=== PATIENT | female | born 1970 | race Caucasian/White ===

== ENCOUNTER 2022-02-07 00:40 | Observation (INO) ==
--- NOTE | 2022-02-07 00:53 | DR.SOBA ---
HPI Time Seen Time Seen by Provider: 02/07/22 00:51 HPI Comment HPI Comment: A 51 y/o female presenting via EMS in respiratory ditress. EMS had been called to the house for her hyspnea. SHe was found in a back room administering her Nubulizer treatment. The exam showed minimal air movement. She was given 0.3 mg of Epi. and later on 0.5 mg Epi. Reviewed Nurses Notes Reviewed: Yes Source History Provided: EMS Mode of Arrival Mode of Arrival: EMS Timing Onset of Chief Complaint: 02/07/22 Context Onset:: At Rest History of:: Asthma Currently on:: Inhaled Bronchodilators Prehospital Care:: Inhaled B2 Modifying Factors Worsens:: Nothing Improves:: Nothing Associated Signs and Symptoms Associated Signs and Symptoms: None PMH PMH Past Medical History: Asthma Past Medical History Comment: Lola MARTINEZ Review of Systems Constitutional: Diaphoresis Eyes: No Symptoms Reported ENTM: No Symptoms Reported Respiratoy: Other (resp. distress) Cardiovascular: No Symptoms Reported Gastrointestinal/Abdominal: No Symptoms Reported Genitourinary: No Symptoms Reported Musculoskeletal: No Symptoms Reported Integumentary: No Symptoms Reported Hematologic/Lymphatic: No Symptoms Reported Endocrine: No Symptoms Reported Psychiatric: No Symptoms Reported PE Vital Signs Vitals: Temperature 98.0 F Pulse Rate 85 Respiratory Rate 24 Blood Pressure 183/74 O2 Sat by Pulse Oximetry 97 General Limitations: No Limitations General Appearance: Lethargic (but easily aroused), In Distress and Other (Diaphoretic) Head Head Exam: Normal Inspection, Atraumatic and Normocephalic Eyes Eye exam: Normal Appearance ENT ENT Exam: Normal Exam, Normal Oropharynx, Normal External Ear Exam and Mucous Membranes Moist Neck Neck Exam: Normal Inspection, Full ROM and Trachea Midline Chest Chest Inspection: Normal Inspection and Symmetric Chest Wall Rise Respiratory Respiratory Exam: Normal Lung Sounds Bilat Cardiovascular Cardiovascular Exam: Regular Rate, Normal Rhythm, Normal Heart Sounds, +S1 and +S2 Abdominal Exam Abdominal Exam: Normal Inspection, Normal Bowel Sounds and Soft Extremities Extremities Exam: Normal Inspection Back Back Exam: Normal Inspection Skin Skin Exam: Diaphoresis COURSE Treatment Treatment: Test results, need for admission were discussed with the pt. and her family. I also spoke with on-call provider, Dr. Dickens. He agrees to her admissi on. Bridge orders were written. Reevaluation 1st: Improved 2nd: Improved Education/Counseling Education/Counseling: Patient, Family, Education and Counseling Educated On: Treatment, Diagnosis, Prognosis and Needs for Follow Up ROR Labs Reviewed Result Diagrams: 02/07/22 00:50 02/07/22 00:50 Laboratory: WBC 10.2 X10^3/uL (3.6-10.0) H 02/07/22 00:50 RBC 5.02 X10^6/uL (3.5-5.4) 02/07/22 00:50 Hgb 14.7 g/dL (12.0-16.0) 02/07/22 00:50 Hct 43.7 % (36.0-47.0) 02/07/22 00:50 MCV 87.2 fL (80.0-100.0) 02/07/22 00:50 MCH 29.3 pg (27.0-34.0) 02/07/22 00:50 MCHC 33.6 g/dL (33.0-35.0) 02/07/22 00:50 RDW 15.4 % (11.6-16.5) 02/07/22 00:50 Plt Count 369 X10^3/uL (150.0-450.0) 02/07/22 00:50 MPV 8.3 fL (7.4-11.0) 02/07/22 00:50 Neut % (Auto) 47.0 % (42.0-75.0) 02/07/22 00:50 Lymph % (Auto) 39.8 % (21.0-51.0) 02/07/22 00:50 [place] % (Auto) 7.0 % (0.0-13.0) 02/07/22 00:50 Eos % (Auto) 5.5 % (0.9-2.9) H 02/07/22 00:50 Baso % (Auto) 0.7 % (0.2-1.0) 02/07/22 00:50 Neut # (Auto) 4.8 x10^3/uL (2.2-4.8) 02/07/22 00:50 Lymph # (Auto) 4.1 X10^3/uL (1.3-2.9) H 02/07/22 00:50 [place] # (Auto) 0.7 x10^3/uL (0.3-0.8) 02/07/22 00:50 Eos # (Auto) 0.6 x10^3/uL (0.0-0.2) H 02/07/22 00:50 Baso # (Auto) 0.1 X10^3/uL (0.0-0.1) 02/07/22 00:50 Absolute Nucleated RBC 0.1 /100WBC 02/07/22 00:50 Sample Site Rr 02/07/22 00:53 ABG pH 7.100 (7.35-7.45) L* 02/07/22 00:53 ABG pCO2 86.0 mmHg (35.0-45.0) H* 02/07/22 00:53 ABG pO2 126.0 mmHg (80.0-100.0) H 02/07/22 00:53 ABG HCO3 26.7 mmol/L (22-26) H 02/07/22 00:53 ABG O2 Saturation 98.0 % (90-100) 02/07/22 00:53 ABG Base Excess -4.7 mmol/L (-2.0-2.0) L 02/07/22 00:53 Arash Test Pos 02/07/22 00:53 A-a Gradient 480.0 mmHg 02/07/22 00:53 FiO2 100 02/07/22 00:53 Blood Gas Comments Nieves well 02/07/22 00:53 Sodium 139 mmol/L (136-145) 02/07/22 00:50 Corrected Sodium 142 mmol/L (136-145) 02/07/22 00:50 Potassium 4.1 mmol/L (3.5-5.1) 02/07/22 00:50 Chloride 103 mmol/L (98-107) 02/07/22 00:50 Carbon Dioxide 25.2 mmol/L (21-32) 02/07/22 00:50 BUN 11 mg/dL (7-18) 02/07/22 00:50 Creatinine 1.16 mg/dL (0.55-1.02) H 02/07/22 00:50 Est GFR (MDRD) Af Amer > 60 (>60) 02/07/22 00:50 Est GFR (MDRD) Non-Af 52 (>60) L 02/07/22 00:50 Glucose 239 mg/dL (65-99) H 02/07/22 00:50 Calcium 8.8 mg/dL (8.5-10.1) 02/07/22 00:50 Corrected Calcium TNP 02/07/22 00:50 Total Bilirubin 0.30 mg/dL (0.2-1.0) 02/07/22 00:50 AST 25 Units/L (15-37) 02/07/22 00:50 ALT 17 Units/L (12-78) 02/07/22 00:50 Alkaline Phosphatase 93 Units/L (46-116) 02/07/22 00:50 Ammonia 47 umol/L (11-32) H 02/07/22 00:50 Creatine Kinase 136 Units/L (26-192) 02/07/22 00:50 CK-MB (CK-2) 2.2 ng/mL (0-4.0) 02/07/22 00:50 CK/CKMB % Calc 1.6 % (<4) 02/07/22 00:50 Troponin I High Sens 45.5 ng/L (4.0-60.0) 02/07/22 00:50 Total Protein 7.4 g/dL (6.4-8.2) 02/07/22 00:50 Albumin 3.5 g/dL (3.4-5.0) 02/07/22 00:50 Globulin 3.9 g/dL (2.5-4.5) 02/07/22 00:50 Albumin/Globulin Ratio 0.9 Ratio (1.1-2.1) L 02/07/22 00:50 SARS-CoV-2 (PCR) Negative (NEGATIVE) 02/07/22 00:55 Influenza Type A (PCR) Negative (NEGATIVE) 02/07/22 00:55 Influenza Type B (PCR) Negative (NEGATIVE) 02/07/22 00:55 RSV (PCR) Negative (NEGATIVE) 02/07/22 00:55 XRAY XRAY Interpreted by: Self X-ray Results: CXR: No cardiomegaly. No infiltrates noted. Radiology report is pending. EKG Rate: 81 [place]: Normal Rhythm: NSR Block: None Hypertrophy: None ST: Normal Opioid Opioid Risk Tool Total: 0 Total Score Risk Category: Low Risk Copyright: [facility] predicting aberrant behaviors Diagnosis Discharge Problem: Respiratory distress, Acute respiratory acidosis Asthma Qualifiers: Asthma severity: unspecified severity Asthma persistence: intermittent Asthma complication type: with acute exacerbation Qualified Code(s): J45.21 - Mild inte rmittent asthma with (acute) exacerbation Atrial fibrillation Qualifiers: Atrial fibrillation type: unspecified Qualified Code(s): I48.91 - Unspecified atrial fibrillation
[2022-02-07 01:05] LABS: BASOPHILS # (AUTO) 0.1 X10^3/uL (0.0-0.1); BASOPHILS % (AUTO) 0.7 % (0.2-1.0); EOSINOPHILS # (AUTO) 0.6 x10^3/uL (0.0-0.2); EOSINOPHILS % (AUTO) 5.5 % (0.9-2.9); HEMATOCRIT 43.7 % (36.0-47.0); HEMOGLOBIN 14.7 g/dL (12.0-16.0); LYMPHOCYTES # (AUTO) 4.1 X10^3/uL (1.3-2.9); LYMPHOCYTES % (AUTO) 39.8 % (21.0-51.0); MEAN CORPUSCULAR HEMOGLOBIN 29.3 pg (27.0-34.0); MEAN CORPUSCULAR HGB CONC 33.6 g/dL (33.0-35.0); MEAN CORPUSCULAR VOLUME 87.2 fL (80.0-100.0); MEAN PLATELET VOLUME 8.3 fL (7.4-11.0); MONOCYTES # (AUTO) 0.7 x10^3/uL (0.3-0.8); NEUTROPHILS # (AUTO) 4.8 x10^3/uL (2.2-4.8); RED BLOOD COUNT 5.02 X10^6/uL (3.5-5.4); RED CELL DISTRIBUTION WIDTH 15.4 % (11.6-16.5); WHITE BLOOD COUNT 10.2 X10^3/uL (3.6-10.0)
[2022-02-07] MEDS ORDERED: ZOFRAN INJ 4 MG VIAL IVP ONE (01:08)
[2022-02-07] MEDS ORDERED: ZOFRAN INJ 4 MG VIAL ONE (01:09)
[2022-02-07 01:11] LABS: AMMONIA 47 umol/L (11-32)
--- NOTE | 2022-02-07 01:13 | RAD ---
HISTORYPT IN ED VIA STRETCHER PER [facility] EMS WITH C/O DIFFICULTY BREATHING.STUDYCHEST, 1 VIEWCOMPARISONNone.TECHNIQUEA single frontal view of the chest was obtained.FINDINGSThere are multiple EKG leads and wires seen overlying the patient. The heart is normal in size. There is no focal infiltrate. There is no effusion. There is no pneumothorax. The osseous structures are intact.IMPRESSIONNo focal infiltrate or effusion.Electronically signed by: Meghana Durham (Feb 07, 2022 01:11:40)
[2022-02-07 01:26] LABS: ABG BASE EXCESS -4.7 mmol/L (-2.0-2.0); ABG HCO3 26.7 mmol/L (22-26)
[2022-02-07 01:27] LABS: ALANINE AMINOTRANSFERASE 17 Units/L (12-78); ALBUMIN 3.5 g/dL (3.4-5.0); ALKALINE PHOSPHATASE 93 Units/L (46-116); ASPARTATE AMINO TRANSFERASE 25 Units/L (15-37); BLOOD UREA NITROGEN 11 mg/dL (7-18); CALCIUM 8.8 mg/dL (8.5-10.1); CARBON DIOXIDE 25.2 mmol/L (21-32); CHLORIDE 103 mmol/L (98-107); CKMB % 1.6 % (<4); COR NA(FOR HYPERGLY) 142 mmol/L (136-145); CREATINE KINASE 136 Units/L (26-192); CREATINE KINASE MB 2.2 ng/mL (0-4.0); CREATININE 1.16 mg/dL (0.55-1.02); SODIUM 139 mmol/L (136-145); TOTAL PROTEIN 7.4 g/dL (6.4-8.2); eGFR NON BLACK RACES 52 (>60)
[2022-02-07 01:27] LABS: ABG ALLEN TEST POS
[2022-02-07] MEDS ORDERED: NovoLIN R (or HumuLIN R) SUBCUT PRN (01:54)
[2022-02-07] MEDS ORDERED: TYLENOL 325 MG TAB PO PRN ×2 (02:35→02:49)
[2022-02-07] MEDS ORDERED: TYLENOL 325 MG TAB PO ONE (02:53)
[2022-02-07 03:04] LABS: ABG BASE EXCESS 4.3 mmol/L (-2.0-2.0); ABG HCO3 29.8 mmol/L (22-26)
[2022-02-07 03:05] LABS: ABG ALLEN TEST POS
[2022-02-07 04:01] VITALS: BMI 40.3
[2022-02-07 05:19] LABS: ALANINE AMINOTRANSFERASE 23 Units/L (12-78); ALKALINE PHOSPHATASE 77 Units/L (46-116); ASPARTATE AMINO TRANSFERASE 23 Units/L (15-37); BLOOD UREA NITROGEN 12 mg/dL (7-18); CALCIUM 8.6 mg/dL (8.5-10.1); CARBON DIOXIDE 31.1 mmol/L (21-32); CHLORIDE 105 mmol/L (98-107); COR CA(FOR HYPOALB) 9.4 mg/dL (8.5-10.1); CREATININE 0.96 mg/dL (0.55-1.02); SODIUM 140 mmol/L (136-145); TOTAL PROTEIN 6.2 g/dL (6.4-8.2); eGFR NON BLACK RACES > 60 (>60)
[2022-02-07 05:29] LABS: BASOPHILS % (AUTO) 0.4 % (0.2-1.0); EOSINOPHILS # (AUTO) 0.3 x10^3/uL (0.0-0.2); EOSINOPHILS % (AUTO) 2.7 % (0.9-2.9); HEMATOCRIT 37.9 % (36.0-47.0); HEMOGLOBIN 12.9 g/dL (12.0-16.0); LYMPHOCYTES # (AUTO) 1.4 X10^3/uL (1.3-2.9); LYMPHOCYTES % (AUTO) 13.1 % (21.0-51.0); MEAN CORPUSCULAR HGB CONC 33.9 g/dL (33.0-35.0); MEAN CORPUSCULAR VOLUME 85.6 fL (80.0-100.0); MEAN PLATELET VOLUME 8.1 fL (7.4-11.0); MONOCYTES # (AUTO) 0.7 x10^3/uL (0.3-0.8); MONOCYTES % (AUTO) 6.5 % (0.0-13.0); NEUTROPHILS % (AUTO) 77.3 % (42.0-75.0); RED BLOOD COUNT 4.43 X10^6/uL (3.5-5.4); RED CELL DISTRIBUTION WIDTH 15.4 % (11.6-16.5); WHITE BLOOD COUNT 10.4 X10^3/uL (3.6-10.0)
[2022-02-07] MEDS: ALDACTONE TAB 25 MG PO SCH ×2 (08:32→08:42)
[2022-02-07] MEDS ORDERED: SOTALOL 120 MG PO SCH (09:00)
[2022-02-07] MEDS ORDERED: COZAAR PO SCH (09:00)
[2022-02-07] MEDS ORDERED: BETAPACE AF PO SCH (09:00)
[2022-02-07 11:04] VITALS: BP 88/53
--- NOTE | 2022-03-09 10:34 | DR.SSS ---
SHORT STAY SUMMARY Admission Date Date of Admission: 02/07/22 Discharge Date Discharge Date: 02/07/22 Admission Diagnoses Admission Diagnoses: 1. Asthma exacerbation Discharge Diagnoses Discharge Diagnoses: 1. Asthma exacerbation resolved Chief Complaint Chief Complaint: Shortness of breath/chest tightness History of Present Illness History of Present Illness: This is a pleasant 51-year-old white female who was brought to the emergency department via EMS. She was having an asthma attack at home while visiting relatives here in [place], [place]. She gave herself a nebulizer treatment but it did not resolve her symptoms. EMS was called and they came and saw her. They brought her to the emergency department where she received 0.3 mg epi which did not open her up a lot then she received a 0.5 mg dose of epi which helped relieve her symptoms. She was in respiratory distress coming in the emergency department but it had resolved. We elected to put her in and watch her on observation floor. When I saw her the later in the morning she was doing well with no complaints. Past Medical History Past Medical History: Asthma Past Surgical History Surgical History: Hysterectomy and Ortho Surgery Allergies Allergies Allergy/AdvReac Type Severity Reaction Status Date / Time apixaban [From Eliquis] Allergy Verified 02/07/22 00:54 meperidine [From Demerol] Allergy Verified 02/07/22 00:54 Sulfa (Sulfonamide Allergy Verified 02/07/22 00:54 Antibiotics) [SULFA] Medications Home Medications: apixaban [From Eliquis] Allergy (Verified 02/07/22 00:54) meperidine [From Demerol] Allergy (Verified 02/07/22 00:54) Sulfa (Sulfonamide Antibiotics) [SULFA] Allergy (Verified 02/07/22 00:54) CONTINUE taking the following medications hydrocodone 5 mg-acetaminophen 325 mg tablet 1 tab PO Q6H PRN 02/07/22 [History] ibuprofen 800 mg tablet 800 mg PO Q8H PRN 02/07/22 [History] losartan 25 mg tablet 25 mg PO DAILY 02/07/22 [History] sotalol 120 mg tablet 120 mg PO BID 02/07/22 [History] spironolactone 25 mg tablet 25 mg PO DAILY 02/07/22 [History] tizanidine 4 mg capsule 4 mg PO Q8H PRN 02/07/22 [History] Family History Family Medical History: [place] and Sudden Cardiac Social History Does patient currently use any type of tobacco product: No Have you used tobacco products in the last 12 months: No Type of Tobacco Use: None Does any household member use tobacco: No Alcohol Use: None Drug Use: None Review of Systems Constitutional: No Symptoms Reported Eyes: No Symptoms Reported ENT: No Symptoms Reported Respiratory: No Symptoms Reported Cardiovascular: No Symptoms Reported Gastrointestinal: No Symptoms Reported Genitourinary: No Symptoms Reported Musculoskeletal: No Symptoms Reported Skin: No Symptoms Reported Neurological: No Symptoms Reported Physical Exam Vital Signs: Last Vital Signs Temp 98.0 F 02/07/22 08:00 Pulse 60 02/07/22 11:00 Resp 24 02/07/22 11:00 BP 88/53 02/07/22 11:00 Pulse Ox 97 02/07/22 11:00 O2 Del Method Room Air 02/07/22 09:00 O2 Flow Rate 2 02/07/22 08:00 FiO2 21 02/07/22 08:41 Oriented: Normal Ear: Normal Nose: Normal Throat: Normal Respiratory: Clear Throughout Cardiovascular: Normal : Normal Auscultation: Bowel Sounds: Normal Palpation: Normal Tenderness: Normal Skin: Normal Musculoskeletal: Normal Psychiatric: Normal Mood Description: Calm Affect: Angry Speech Pattern: Clear Labs Labs: Laboratory Last Values WBC 10.4 X10^3/uL (3.6-10.0) H 02/07/22 04:30 RBC 4.43 X10^6/uL (3.5-5.4) 02/07/22 04:30 Hgb 12.9 g/dL (12.0-16.0) 02/07/22 04:30 Hct 37.9 % (36.0-47.0) 02/07/22 04:30 MCV 85.6 fL (80.0-100.0) 02/07/22 04:30 MCH 29.0 pg (27.0-34.0) 02/07/22 04:30 MCHC 33.9 g/dL (33.0-35.0) 02/07/22 04:30 RDW 15.4 % (11.6-16.5) 02/07/22 04:30 Plt Count 255 X10^3/uL (150.0-450.0) 02/07/22 04:30 MPV 8.1 fL (7.4-11.0) 02/07/22 04:30 Neut % (Auto) 77.3 % (42.0-75.0) H 02/07/22 04:30 Lymph % (Auto) 13.1 % (21.0-51.0) L 02/07/22 04:30 [place] % (Auto) 6.5 % (0.0-13.0) 02/07/22 04:30 Eos % (Auto) 2.7 % (0.9-2.9) 02/07/22 04:30 Baso % (Auto) 0.4 % (0.2-1.0) 02/07/22 04:30 Neut # (Auto) 8.0 x10^3/uL (2.2-4.8) H 02/07/22 04:30 Lymph # (Auto) 1.4 X10^3/uL (1.3-2.9) 02/07/22 04:30 [place] # (Auto) 0.7 x10^3/uL (0.3-0.8) 02/07/22 04:30 Eos # (Auto) 0.3 x10^3/uL (0.0-0.2) H 02/07/22 04:30 Baso # (Auto) 0.0 X10^3/uL (0.0-0.1) 02/07/22 04:30 Absolute Nucleated RBC 0.0 /100WBC 02/07/22 04:30 Sample Site Lr 02/07/22 03:00 ABG pH 7.410 (7.35-7.45) 02/07/22 03:00 ABG pCO2 47.0 mmHg (35.0-45.0) H 02/07/22 03:00 ABG pO2 162.0 mmHg (80.0-100.0) H 02/07/22 03:00 ABG HCO3 29.8 mmol/L (22-26) H 02/07/22 03:00 ABG O2 Saturation 99.0 % (90-100) 02/07/22 03:00 ABG Base Excess 4.3 mmol/L (-2.0-2.0) H 02/07/22 03:00 Arash Test Pos 02/07/22 03:00 A-a Gradient 64.0 mmHg 02/07/22 03:00 FiO2 40.0 02/07/22 03:00 Blood Gas Comments Nieves well sw 02/07/22 03:00 Sodium 140 mmol/L (136-145) 02/07/22 04:30 Corrected Sodium TNP 02/07/22 04:30 Potassium 4.0 mmol/L (3.5-5.1) 02/07/22 04:30 Chloride 105 mmol/L (98-107) 02/07/22 04:30 Carbon Dioxide 31.1 mmol/L (21-32) 02/07/22 04:30 BUN 12 mg/dL (7-18) 02/07/22 04:30 Creatinine 0.96 mg/dL (0.55-1.02) 02/07/22 04:30 Est GFR (MDRD) Af Amer > 60 (>60) 02/07/22 04:30 Est GFR (MDRD) Non-Af > 60 (>60) 02/07/22 04:30 Glucose 81 mg/dL (65-99) 02/07/22 04:30 Hemoglobin A1c 5.6 % 02/07/22 04:30 Calcium 8.6 mg/dL (8.5-10.1) 02/07/22 04:30 Corrected Calcium 9.4 mg/dL (8.5-10.1) 02/07/22 04:30 Total Bilirubin 0.30 mg/dL (0.2-1.0) 02/07/22 04:30 AST 23 Units/L (15-37) 02/07/22 04:30 ALT 23 Units/L (12-78) 02/07/22 04:30 Alkaline Phosphatase 77 Units/L (46-116) 02/07/22 04:30 Ammonia 47 umol/L (11-32) H 02/07/22 00:50 Creatine Kinase 136 Units/L (26-192) 02/07/22 00:50 CK-MB (CK-2) 2.2 ng/mL (0-4.0) 02/07/22 00:50 CK/CKMB % Calc 1.6 % (<4) 02/07/22 00:50 Troponin I High Sens 45.5 ng/L (4.0-60.0) 02/07/22 00:50 Total Protein 6.2 g/dL (6.4-8.2) L 02/07/22 04:30 Albumin 3.0 g/dL (3.4-5.0) L 02/07/22 04:30 Globulin 3.2 g/dL (2.5-4.5) 02/07/22 04:30 Albumin/Globulin Ratio 0.9 Ratio (1.1-2.1) L 02/07/22 04:30 SARS-CoV-2 (PCR) Negative (NEGATIVE) 02/07/22 00:55 Influenza Type A (PCR) Negative (NEGATIVE) 02/07/22 00:55 Influenza Type B (PCR) Negative (NEGATIVE) 02/07/22 00:55 RSV (PCR) Negative (NEGATIVE) 02/07/22 00:55 Assessment/Plan (1) Asthma: 1: At this time seen the patient she is doing well lungs are clear with no problems. She is not in respiratory distress at this time. (2) Respiratory distress: 1: Respiratory distress had resolved since patient was in the emergency department few hours earlier. (3) Asthma exacerbation: 1: Following admission the patient was doing better he was continued on nebulizers and steroids. This morning she is clear satting 97% on room air with no respiratory complaints at all. Hospital Course Hospital Course: The patient after admission did well. Her lungs had cleared up she was breathing well she had not had any further hypoxia and had no complaints when I saw her a few hours after admission. She is ready to go home she has her medications at home and has no new complaints. Discharge Medications Discharge Medications: Home Medication List hydrocodone 5 mg-acetaminophen 325 mg tablet 1 tab PO Q6H PRN 02/07/22 [History] ibuprofen 800 mg tablet 800 mg PO Q8H PRN 02/07/22 [History] losartan 25 mg tablet 25 mg PO DAILY 02/07/22 [History] sotalol 120 mg tablet 120 mg PO BID 02/07/22 [History] spironolactone 25 mg tablet 25 mg PO DAILY 02/07/22 [History] tizanidine 4 mg capsule 4 mg PO Q8H PRN 02/07/22 [History] Prescriptions: Discharge Disposition Discharge Disposition: Patient will be discharged home in stable condition she can follow-up with her primary care physician as a hospital follow-up. Discharge Plan Discharge Plan Patient Disposition: 01 HOME, SELF-CARE Condition: Stable Health Concerns: Post Hospitalization: new medications and changes needed to prevent readmission or further decline. Pt educated and given instructions on all concerns. Plan of Treatment: Continue with present treatment and follow up plan. Pt is to keep follow up appointment as instructed and take medications as ordered. Prescriptions: No Action ibuprofen 800 mg Tablet 800 mg PO Q8H PRN hydrocodone-acetaminophen 5-325 mg Tablet 1 tab PO Q6H PRN sotalol 120 mg Tablet 120 mg PO BID spironolactone 25 mg Tablet 25 mg PO DAILY losartan 25 mg Tablet 25 mg PO DAILY tizanidine 4 mg Capsule 4 mg PO Q8H PRN Orders to Discharge Patient Discharge Orders: Discharge (Routine); Ordered 02/07/22 Ordered By: KENDRA SUAREZ Follow ups/Referrals Follow ups/Referrals: Patient to follow up with primary doctor out patient [Other] - 1 WEEK Instructions Instructions: Asthma, Adult, Cough, Adult, Asthma Attack Prevention, Adult, Asthma and Physical Activity Stand Alone Forms: Excuse From Work or School, Precautions for COVID19, [facility], Patient Portal, Social Distancing Patient Education Addl Reference Links: Respiratory distress [email or web address].dn=Female&age.v.v=51&age.v.u=a&performe r=PROV&informationRecipient=PAT&perform er.languageCode.c=en&mainSearchCriteria.v.w=[id number]&mainSearchCriteria.v.cs=2. [id number]&mainSearchCriteria.v.dn=Respiratory+distress&mainSearchCrit eria.v.v8=286.09&mainSearchCriteria.v.cs 1=[id number]&mainSearchCriteria.v.dn1=Respiratory+distress&mainSear chCriteria.v.c2=R06.03&mainSearchCriteria.v.cs2=[id number]&mainSearc hCriteria.v.dn2=Respiratory+distress
== END 2022-02-07 11:30 | disposition home or self-care (01) ==
LOC: ER 00:40 → ICU 01:51 → INTOOBSV 01:51 → ICU 02:14
PROVIDERS: ADMIT Family Medicine; ATTEND Family Medicine
DX: E87.2 Acidosis; R73.09 Other abnormal glucose; R06.03 Acute respiratory distress; J45.21 Mild intermittent asthma with (acute) exacerbation; I48.91 Unspecified atrial fibrillation